=== PATIENT | male | born 1960 ===

== ENCOUNTER 2016-08-22 08:47 | Emergency (ER) | payer SELFPAY ==
[2016-08-22 09:06] VITALS: TEMP 98.4
--- NOTE | 2016-08-22 09:25 | UCPHY ---
H & P Time Seen by Provider: 08/22/16 08:56 Patient Type: New HPI/ROS: Pain to left index finger for last 3 days. Throbbing sensation. No injury that he can recall. No prior similar problems. He does not bite his nails. 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 I have explained to him not prepare food for anyone else. Last tetanus shot within 5 years. No fevers or chills red streaks Smoking Status: Never smoked Physical Exam: General: Well-developed well-nourished afebrile. Vital signs stable. The left 2nd digit at the cuticle margin is moderately swollen with a Betancourt of pus evident at the cuticle margin but it is intact. There is no active drainage. There is no lymphangitis. No epitrochlear or axillary nodes. Constitutional: Initial Vital Signs Temperature (C) 36.9 C 08/22/16 09:03 Heart Rate 60 08/22/16 09:03 Respiratory Rate 18 08/22/16 09:03 Blood Pressure 149/110 H 08/22/16 09:03 O2 Sat (%) 95 08/22/16 09:03 O2 Delivery Mode Room Air Allergies/Adverse Reactions: No Known Allergies Allergy (Unverified 08/22/16 09:02) Home Medications: Medication Instructions Recorded Cephalexin [Keflex (*)] 500 mg PO TID #21 cap 08/22/16 Hydrocodone/APAP 5/325 [[place] 1 - 2 tab PO Q4H PRN #10 tab 08/22/16 5/325 (*)] Medical Decision Making Procedures: Digital block performed as a ring block with 1% xylocaine with out appy to the left index. I and D of abscess: Sterile technique, Chloraseptic prep Anesthetized with 1% xylocaine as above Incised with a 11. Blade, tolerated well. Culture taken. Differential Diagnosis: Diagnostic considerations include, but are not limited to, the following: Paronychia, felon, tenosynovitis, Patient is placed on 7 days of Keflex 500 three times daily pending culture Departure - Departure Disposition: Home, Routine, Self-Care Clinical Impression: Paronychia Qualifiers: Laterality: left Qualifier Code: (L03.012) Cellulitis of left finger Condition: Good Instructions: Paronychia (ED) Additional Instructions: Soak digit 3 times daily for next 3 days Take the Keflex for 7 days We will call only if cultures indicate antibiotic change in necessary your blood pressure was high here in the clinic, indeed have a recheck Referrals: NONE *PRIMARY CARE P,. [Primary Care Provider] - As per Instructions Prescriptions: Cephalexin [Keflex (*)] 500 mg PO TID #21 cap Hydrocodone/APAP 5/325 [[place] 5/325 (*)] 1 - 2 tab PO Q4H PRN #10 tab PRN Reason: Pain, Moderate - PQRS PQRS Measurement: Not applicable
[2016-08-22 10:25] VITALS: BP 145/95; PULSE 53; RESP 16; O2SAT 96
== END 2016-08-22 10:25 | disposition home or self-care (01) ==
LOC: CED 08:47
PROC: 0H9GXZZ Drainage of Left Hand Skin, External Approach (ICD-10-PCS; principal; 2016-08-22)
DX: L03.012 Cellulitis of left finger (principal)
CPT/HCPCS: G0463-PO